=== PATIENT | female | born 1945 | race African-American/Black ===

== ENCOUNTER 2023-07-20 12:37 | Emergency (ER) | payer BC ==
[~2023-07-20] VITALS: Ht 160 cm; Wt 85.0 kg
[2023-07-20 13:10] VITALS: BP 171/80; PULSE 73; RESP 18; TEMP 97.9; O2SAT 100
[2023-07-20] MEDS ORDERED: SULF1TAB48 MT (15:26)
== END 2023-07-20 16:12 | disposition home or self-care (01) ==
LOC: ER 12:37
DX: L60.0 Ingrowing nail (principal); Z88.0 Allergy status to penicillin
CPT/HCPCS: 99283